=== PATIENT | female | born 1945 | race Caucasian/White ===

== ENCOUNTER 2024-01-31 20:58 | Outpatient (REF) | payer MEDICARE, MEDICAID, SELFPAY ==
[2024-01-31 22:16] LABS: Hematocrit 43.6 % (36.0-48.0); Mean Corpuscular HGB Conc 32.1 g/dL (29.9-35.2); Mean Corpuscular Hemoglobin 29.2 pg (26.7-34.0); Mean Corpuscular Volume 90.8 fL (81.0-99.0); Mean Platelet Volume 10.2 fL (9.5-13.5); Platelet Count 218 10^3/uL (150-450); Red Cell Distribution Width 16.3 % (11.0-15.0)
[2024-01-31 22:25] LABS: Anion Gap 13.9; BUN Creatinine Ratio 18.1; Calcium 9.1 mg/dL (8.5-10.1); Carbon Dioxide 24.3 mmol/L (21.0-32.0); Chloride 98 mmol/L (98-107); Estimated GFR (African America >60 (>=60 mL/min/1.73m^2); Estimated GFR (Non-African Ame >60 (>=60 mL/min/1.73m^2); Glucose 97 mg/dL (74-106); Potassium 4.2 mmol/L (3.5-5.1); Sodium 132 mmol/L (136-145)
[2024-01-31 22:35] LABS: Basophils Abs Manual 0.12 10^3/uL (0.00-0.10); Eosinophils Absolute Manual 0.15 10^3/uL (0.00-0.70); Lymphocytes Absolute Manual 1.05 10^3/uL (1.20-3.80); Monocytes Absolute Manual 0.72 10^3/uL (0.30-0.80); Segmented Neut Absolute Manual 0.96 10^3/uL (1.4-6.5)
[2024-01-31 22:37] LABS: Anisocytosis 1+
== END 2024-01-31 20:59 | disposition home or self-care (01) ==
LOC: LAB 20:58
PROVIDERS: Visit Provider Nurse Practitioner Family
DX: Z79.899 Other long term (current) drug therapy (principal)
CPT/HCPCS: 36415; 80048; 85007; 85027